=== PATIENT | female | born 1930 | race Hispanic/Latino ===

== ENCOUNTER 2017-06-29 22:15 | Inpatient (IN) | payer MEDICARE ==
[~2017-06-29] VITALS: Ht 152.4 cm; Wt 70.4 kg
[2017-06-29 22:42] LABS: HEMATOCRIT 29.9 % (36-48); MEAN CORPUSCULAR HEMOGLOBIN 33.3 pg (27.0-33.0); MEAN CORPUSCULAR HGB CONC 34.6 g/dL (32.0-36.0); MEAN CORPUSCULAR VOLUME 96.1 fL (79-99); PLATELET COUNT (AUTO) 164 K/uL (130-400); RED BLOOD CELL COUNT(AUTO) 3.12 MIL/uL (4.00-5.50); RED CELL DISTRIBUTION WIDTH 12.5 % (11.0-15.5); WHITE BLOOD COUNT (AUTO) 15.8 K/uL (4.8-10.8)
[2017-06-29 23:00] LABS: ALBUMIN 2.5 g/dL (3.5-5.0); BILIRUBIN,TOTAL 0.5 mg/dL (0.2-1.0); CREATININE 3.6 mg/dL (0.5-1.5); POTASSIUM 5.7 mmol/L (3.5-5.1); TOTAL PROTEIN, SERUM 6.4 g/dL (6.0-8.3)
[2017-06-29 23:04] LABS: BAND NEUTROPHILS % (MANUAL) 7 % (0-2); LYMPHOCYTES % (MANUAL) 5 % (22-44); MAN.DIFF COMMENT-IMPRESSION MANUAL DIFFERENTIAL; MONOCYTES % (MANUAL) 3 % (2-9); SEGMENTED NEUTROPHILS % 85 % (40-70)
[2017-06-29 23:05] LABS: PLATELET MORPHOLOGY COMMENT ADEQUATE
[2017-06-29 23:11] LABS: APPEARANCE,URINE Turbid (CLEAR); BILIRUBIN,URINE Negative (NEGATIVE); COLOR,URINE Yellow (YELLOW); GLUCOSE, URINE (UA) Negative (NEGATIVE); KETONES,URINE Negative (NEGATIVE); LEUKOCYTE ESTERASE ,URINE Large (NEGATIVE); NITRATE,URINE Negative (NEGATIVE); OCCULT BLOOD,URINE Small (NEGATIVE); PROTEIN,URINE 300 (NEGATIVE)
[2017-06-30 00:03] LABS: BACTERIA,URINE Many /HPF (None Seen); SQUAMOUS EPITHELIAL CELL,UR Many /LPF (0-2); WBC,URINE Full Field /HPF (0-1)
[2017-06-30 00:46] LABS: APPEARANCE,URINE Turbid (CLEAR); BILIRUBIN,URINE Negative (NEGATIVE); COLOR,URINE Yellow (YELLOW); GLUCOSE, URINE (UA) Negative (NEGATIVE); KETONES,URINE Negative (NEGATIVE); LEUKOCYTE ESTERASE ,URINE Large (NEGATIVE); NITRATE,URINE Negative (NEGATIVE); OCCULT BLOOD,URINE Negative (NEGATIVE); PROTEIN,URINE 300 (NEGATIVE)
[2017-06-30 00:54] LABS: BACTERIA,URINE Many /HPF (None Seen); RBC,URINE None Seen /HPF (0-1); SQUAMOUS EPITHELIAL CELL,UR None Seen /LPF (0-2); WBC,URINE 51-100 /HPF (0-1)
[2017-06-30] MEDS ORDERED: CEFTRIAXONE SODIUM 2 GM VIAL ONE (01:11)
[2017-06-30] MEDS ORDERED: SODIUM CHLORIDE 0.9% 1000ML 1,000 ML IV ONE ×2 (01:11→02:17)
[2017-06-30] MEDS ORDERED: ONDANSETRON HCL 4 MG/2 ML VIAL IVP PRN (03:00)
[2017-06-30] MEDS: CEFTRIAXONE SODIUM 1 GM IVP SCH (03:00)
[2017-06-30] MEDS ORDERED: SODIUM CHLORIDE 0.9% 1000ML 1,000 ML IV SCH (03:00)
[2017-06-30 04:22] VITALS: BP 158/66
[2017-06-30] MEDS ORDERED: ASPI-555 PO (05:33)
[2017-06-30] MEDS ORDERED: ESOM40CA54 PO (05:33)
[2017-06-30] MEDS ORDERED: CARV12.511 PO (05:33)
[2017-06-30] MEDS ORDERED: MELO7.5O PO (05:33)
[2017-06-30] MEDS ORDERED: HYDR-4153 PO (05:33)
[2017-06-30] MEDS ORDERED: FOLI1TAB85 PO (05:33)
[2017-06-30] MEDS ORDERED: ISOS30TA6 PO (05:33)
[2017-06-30] MEDS ORDERED: FERR325T22 PO (05:33)
[2017-06-30] MEDS ORDERED: BENZ-51 PO (05:33)
[2017-06-30] MEDS ORDERED: ATOR10TA69 PO (05:33)
[2017-06-30] MEDS ORDERED: CHOL100040 PO (05:33)
[2017-06-30] MEDS ORDERED: CYAN10009 PO (05:33)
[2017-06-30] MEDS ORDERED: TRAM50TA4 PO (05:33)
[2017-06-30] MEDS: INSULIN HUMULIN R 100 UNIT/ML 3ML SQ SCH ×4 (06:22→21:47)
[2017-06-30 08:00] VITALS: BP 165/68
[2017-06-30] MEDS: FAMOTIDINE/PF 20 MG/2 ML VIAL IV SCH (09:35)
[2017-06-30] MEDS: ENOXAPARIN SODIUM 30 MG/0.3 ML SQ SCH (09:37)
[2017-06-30] MEDS: ACETAMINOPHEN 325 MG TAB PO PRN (11:29)
[2017-06-30 12:14] VITALS: BP 106/78
[2017-06-30 14:06] LABS: HEMATOCRIT 27.4 % (36-48); MEAN CORPUSCULAR HEMOGLOBIN 32.5 pg (27.0-33.0); MEAN CORPUSCULAR HGB CONC 34.2 g/dL (32.0-36.0); MEAN CORPUSCULAR VOLUME 94.9 fL (79-99); PLATELET COUNT (AUTO) 162 K/uL (130-400); RED BLOOD CELL COUNT(AUTO) 2.88 MIL/uL (4.00-5.50); RED CELL DISTRIBUTION WIDTH 12.8 % (11.0-15.5); WHITE BLOOD COUNT (AUTO) 11.8 K/uL (4.8-10.8)
[2017-06-30 14:19] LABS: CREATININE 3.5 mg/dL (0.5-1.5); POTASSIUM 5.3 mmol/L (3.5-5.1)
[2017-06-30 16:00] VITALS: BP 166/84
[2017-06-30] MEDS ORDERED: GUAIFENESIN SUGAR-FREE 100 MG/5 ML UDCUP PO PRN (16:15)
[2017-06-30] MEDS ORDERED: SODIUM POLYSTYRENE SULFONATE 15 GM/60 ML ML PO SCH (16:15)
[2017-06-30] MEDS ORDERED: LEVOFLOXACIN 500 MG/D5W 100 ML 100 ML IV SCH (16:30)
[2017-06-30 20:00] VITALS: BP 172/70
[2017-07-01] VITALS: BP 158/76
[2017-07-01] MEDS: CEFTRIAXONE SODIUM 1 GM IVP SCH (03:03)
[2017-07-01 04:00] VITALS: BP 176/72
[2017-07-01 04:47] LABS: HEMATOCRIT 28.2 % (36-48); MEAN CORPUSCULAR HEMOGLOBIN 33.8 pg (27.0-33.0); MEAN CORPUSCULAR HGB CONC 35.8 g/dL (32.0-36.0); MEAN CORPUSCULAR VOLUME 94.5 fL (79-99); PLATELET COUNT (AUTO) 168 K/uL (130-400); RED BLOOD CELL COUNT(AUTO) 2.98 MIL/uL (4.00-5.50); RED CELL DISTRIBUTION WIDTH 12.3 % (11.0-15.5); WHITE BLOOD COUNT (AUTO) 13.3 K/uL (4.8-10.8)
[2017-07-01 05:03] LABS: CREATININE 3.3 mg/dL (0.5-1.5); POTASSIUM 4.8 mmol/L (3.5-5.1)
[2017-07-01] MEDS: ACETAMINOPHEN 325 MG TAB PO PRN ×3 (05:20→21:34)
[2017-07-01] MEDS: INSULIN HUMULIN R 100 UNIT/ML 3ML SQ SCH ×4 (07:29→21:55)
[2017-07-01 08:00] VITALS: BP 158/90
[2017-07-01] MEDS: FAMOTIDINE/PF 20 MG/2 ML VIAL IV SCH ×3 (09:00→21:24)
[2017-07-01] MEDS: ENOXAPARIN SODIUM 30 MG/0.3 ML SQ SCH (09:47)
[2017-07-01 11:00] VITALS: BP 167/84
[2017-07-01] MEDS ORDERED: TRAMADOL HCL 50 MG TABLET PO PRN (13:15)
[2017-07-01] MEDS ORDERED: BENZONATATE 100 MG CAPSULE PO PRN (13:15)
[2017-07-01 16:00] VITALS: BP 161/81
[2017-07-01 20:15] VITALS: BP 171/74
[2017-07-01] MEDS: CARVEDILOL 12.5 MG TABLET PO SCH (21:32)
[2017-07-02] VITALS (16 sets, daily range): BP systolic 114–181; BP diastolic 67–114
[2017-07-02] MEDS: CEFTRIAXONE SODIUM 1 GM IVP SCH (03:05)
[2017-07-02 05:01] LABS: HEMATOCRIT 28.8 % (36-48); MEAN CORPUSCULAR HEMOGLOBIN 32.6 pg (27.0-33.0); MEAN CORPUSCULAR HGB CONC 34.3 g/dL (32.0-36.0); MEAN CORPUSCULAR VOLUME 95.1 fL (79-99); PLATELET COUNT (AUTO) 210 K/uL (130-400); RED BLOOD CELL COUNT(AUTO) 3.03 MIL/uL (4.00-5.50); RED CELL DISTRIBUTION WIDTH 12.6 % (11.0-15.5); WHITE BLOOD COUNT (AUTO) 11.2 K/uL (4.8-10.8)
[2017-07-02 05:26] LABS: POTASSIUM 4.5 mmol/L (3.5-5.1)
[2017-07-02] MEDS: INSULIN HUMULIN R 100 UNIT/ML 3ML SQ SCH ×3 (06:37→22:40)
[2017-07-02] MEDS: CHOLECALCIFEROL PO SCH (09:00)
[2017-07-02] MEDS ORDERED: ATORVASTATIN CALCIUM 10 MG TABLET PO SCH (09:00)
[2017-07-02] MEDS: FERROUS SULFATE 325 MG TABLET.DR PO SCH (09:26)
[2017-07-02] MEDS: CYANOCOBALAMIN (VITAMIN B-12) 1,000 MCG TABLET PO SCH (09:26)
[2017-07-02] MEDS: ASPIRIN 81 MG EC TAB PO SCH (09:26)
[2017-07-02] MEDS: FOLIC ACID/VITAMIN B COMP W-C 1 MG CAPSULE PO SCH (09:26)
[2017-07-02] MEDS: CARVEDILOL 12.5 MG TABLET PO SCH ×2 (09:27→20:36)
[2017-07-02] MEDS: ISOSORBIDE MONO 30MG TAB SR PO SCH (09:27)
[2017-07-02] MEDS: PANTOPRAZOLE SODIUM 40 MG TABLET.DR PO SCH (09:27)
[2017-07-02] MEDS: ENOXAPARIN SODIUM 30 MG/0.3 ML SQ SCH (09:30)
[2017-07-02] MEDS: DIPHENHYDRAMINE HCL 25 MG CAPSULE PO SCH (20:35)
[2017-07-02] MEDS: ACETAMINOPHEN 325 MG TAB PO PRN (20:39)
[2017-07-03 03:00] VITALS: BP 131/71
[2017-07-03] MEDS: CEFTRIAXONE SODIUM 1 GM IVP SCH (03:07)
[2017-07-03 04:39] LABS: HEMATOCRIT 29.3 % (36-48); MEAN CORPUSCULAR HEMOGLOBIN 33.2 pg (27.0-33.0); MEAN CORPUSCULAR HGB CONC 34.8 g/dL (32.0-36.0); MEAN CORPUSCULAR VOLUME 95.3 fL (79-99); PLATELET COUNT (AUTO) 262 K/uL (130-400); RED BLOOD CELL COUNT(AUTO) 3.07 MIL/uL (4.00-5.50); RED CELL DISTRIBUTION WIDTH 12.7 % (11.0-15.5); WHITE BLOOD COUNT (AUTO) 12.3 K/uL (4.8-10.8)
[2017-07-03 04:46] LABS: POTASSIUM 4.7 mmol/L (3.5-5.1)
[2017-07-03] MEDS: INSULIN HUMULIN R 100 UNIT/ML 3ML SQ SCH ×4 (06:26→21:00)
[2017-07-03] MEDS: ACETAMINOPHEN 325 MG TAB PO PRN (06:54)
[2017-07-03 08:00] VITALS: BP 173/85
[2017-07-03] MEDS: CHOLECALCIFEROL PO SCH (09:00)
[2017-07-03] MEDS: ISOSORBIDE MONO 30MG TAB SR PO SCH (09:22)
[2017-07-03] MEDS: CYANOCOBALAMIN (VITAMIN B-12) 1,000 MCG TABLET PO SCH (09:22)
[2017-07-03] MEDS: CARVEDILOL 12.5 MG TABLET PO SCH ×2 (09:22→20:50)
[2017-07-03] MEDS: FERROUS SULFATE 325 MG TABLET.DR PO SCH (09:22)
[2017-07-03] MEDS: ASPIRIN 81 MG EC TAB PO SCH (09:22)
[2017-07-03] MEDS: FOLIC ACID/VITAMIN B COMP W-C 1 MG CAPSULE PO SCH (09:22)
[2017-07-03] MEDS: PANTOPRAZOLE SODIUM 40 MG TABLET.DR PO SCH (09:22)
[2017-07-03] MEDS: ENOXAPARIN SODIUM 30 MG/0.3 ML SQ SCH (09:24)
[2017-07-03] MEDS ORDERED: KETOROLAC TROMETHAMINE 30MG/ML IV SCH (11:45)
[2017-07-03] MEDS ORDERED: MAG HYDROX/AL HYDROX/SIMETH ES 30 ML SUSP UDCUP PO SCH (11:45)
[2017-07-03 12:00] VITALS: BP 182/91
[2017-07-03 16:00] VITALS: BP 159/71
[2017-07-03 19:25] VITALS: BP 147/72
[2017-07-03] MEDS: DIPHENHYDRAMINE HCL 25 MG CAPSULE PO SCH (20:50)
[2017-07-03] MEDS: ATORVASTATIN CALCIUM 10 MG TABLET PO SCH (20:50)
[2017-07-04] VITALS (8 sets, daily range): BP systolic 147–180; BP diastolic 64–92
[2017-07-04] MEDS: CEFTRIAXONE SODIUM 1 GM IVP SCH (03:24)
[2017-07-04] MEDS: INSULIN HUMULIN R 100 UNIT/ML 3ML SQ SCH ×4 (06:39→21:48)
[2017-07-04] MEDS: PANTOPRAZOLE SODIUM 40 MG TABLET.DR PO SCH ×2 (07:30→09:25)
[2017-07-04] MEDS: CHOLECALCIFEROL PO SCH (09:00)
[2017-07-04] MEDS: ISOSORBIDE MONO 30MG TAB SR PO SCH (09:25)
[2017-07-04] MEDS: CYANOCOBALAMIN (VITAMIN B-12) 1,000 MCG TABLET PO SCH (09:25)
[2017-07-04] MEDS: FUROSEMIDE 10 MG/ML 4ML VIAL IVP SCH ×2 (09:25→21:47)
[2017-07-04] MEDS: CARVEDILOL 12.5 MG TABLET PO SCH ×2 (09:25→21:47)
[2017-07-04] MEDS: FOLIC ACID/VITAMIN B COMP W-C 1 MG CAPSULE PO SCH (09:25)
[2017-07-04] MEDS: FERROUS SULFATE 325 MG TABLET.DR PO SCH (09:26)
[2017-07-04] MEDS: ENOXAPARIN SODIUM 30 MG/0.3 ML SQ SCH (09:26)
[2017-07-04] MEDS: ASPIRIN 81 MG EC TAB PO SCH (09:26)
[2017-07-04] MEDS: CLONIDINE HCL 0.1 MG TABLET ONE ×2 (18:27→18:32)
[2017-07-04] MEDS ORDERED: CLONIDINE HCL 0.2 MG TABLET PO ONE (19:00)
[2017-07-04] MEDS: ATORVASTATIN CALCIUM 10 MG TABLET PO SCH (21:46)
[2017-07-04] MEDS: DIPHENHYDRAMINE HCL 25 MG CAPSULE PO SCH (21:46)
[2017-07-05] MEDS: CEFTRIAXONE SODIUM 1 GM IVP SCH (02:13)
[2017-07-05 04:00] VITALS: BP 159/87
[2017-07-05 05:20] LABS: BASOPHILS % (AUTO) 0.5 % (0.0-5.0); EOSINOPHILS % (AUTO) 0.9 % (0.0-8.0); HEMATOCRIT 27.3 % (36-48); LYMPHOCYTES % (AUTO) 6.5 % (21.0-51.0); MEAN CORPUSCULAR HGB CONC 35.9 g/dL (32.0-36.0); MEAN CORPUSCULAR VOLUME 94.5 fL (79-99); MONOCYTES % (AUTO) 6.1 % (3.0-13.0); NUCLEATED RED BLOOD CELLS 0.2 % (0.0-0.19); PLATELET COUNT (AUTO) 339 K/uL (130-400); RED BLOOD CELL COUNT(AUTO) 2.88 MIL/uL (4.00-5.50); RED CELL DISTRIBUTION WIDTH 12.8 % (11.0-15.5); WHITE BLOOD COUNT (AUTO) 13.1 K/uL (4.8-10.8)
[2017-07-05 05:33] LABS: CREATININE 2.9 mg/dL (0.5-1.5); POTASSIUM 4.4 mmol/L (3.5-5.1)
[2017-07-05] MEDS: INSULIN HUMULIN R 100 UNIT/ML 3ML SQ SCH ×4 (06:11→21:27)
[2017-07-05] MEDS: PANTOPRAZOLE SODIUM 40 MG TABLET.DR PO SCH ×2 (06:40→09:24)
[2017-07-05 08:00] VITALS: BP 172/78
[2017-07-05] MEDS: CHOLECALCIFEROL PO SCH (09:00)
[2017-07-05] MEDS: FOLIC ACID/VITAMIN B COMP W-C 1 MG CAPSULE PO SCH (09:24)
[2017-07-05] MEDS: ISOSORBIDE MONO 30MG TAB SR PO SCH (09:24)
[2017-07-05] MEDS: FERROUS SULFATE 325 MG TABLET.DR PO SCH (09:24)
[2017-07-05] MEDS: CYANOCOBALAMIN (VITAMIN B-12) 1,000 MCG TABLET PO SCH (09:24)
[2017-07-05] MEDS: ASPIRIN 81 MG EC TAB PO SCH (09:24)
[2017-07-05] MEDS: CARVEDILOL 12.5 MG TABLET PO SCH ×2 (09:25→20:48)
[2017-07-05] MEDS: FUROSEMIDE 10 MG/ML 4ML VIAL IVP SCH ×2 (09:25→20:49)
[2017-07-05] MEDS: ENOXAPARIN SODIUM 30 MG/0.3 ML SQ SCH (09:26)
[2017-07-05 11:37] VITALS: BP 152/66
[2017-07-05] MEDS ORDERED: COMPOUND IV MISC 1 EACH IVSOLN MISC PRN (13:15)
[2017-07-05] MEDS: EPOETIN ALFA 10,000 UNIT/ML VIAL SQ SCH (13:56)
[2017-07-05 16:00] VITALS: BP 160/70
[2017-07-05 19:00] VITALS: BP 165/75
[2017-07-05] MEDS: DIPHENHYDRAMINE HCL 25 MG CAPSULE PO SCH (20:48)
[2017-07-05] MEDS: ATORVASTATIN CALCIUM 10 MG TABLET PO SCH (20:48)
[2017-07-06] VITALS (8 sets, daily range): BP systolic 154–177; BP diastolic 64–85
[2017-07-06] MEDS: CARVEDILOL 12.5 MG TABLET PO SCH ×2 (06:29→20:35)
[2017-07-06] MEDS: ACETAMINOPHEN 325 MG TAB PO PRN ×2 (06:29→23:47)
[2017-07-06] MEDS: INSULIN HUMULIN R 100 UNIT/ML 3ML SQ SCH ×4 (06:41→21:05)
[2017-07-06] MEDS: PANTOPRAZOLE SODIUM 40 MG TABLET.DR PO SCH ×2 (06:47→10:33)
[2017-07-06] MEDS: CHOLECALCIFEROL PO SCH (09:00)
[2017-07-06] MEDS: FUROSEMIDE 10 MG/ML 4ML VIAL IVP SCH ×2 (10:31→20:34)
[2017-07-06] MEDS: CYANOCOBALAMIN (VITAMIN B-12) 1,000 MCG TABLET PO SCH (10:32)
[2017-07-06] MEDS: IRON SUCROSE COMPLEX 100 MG in SODIUM CHLORIDE 0.9% 50 ML IV SCH (10:32)
[2017-07-06] MEDS: ENOXAPARIN SODIUM 30 MG/0.3 ML SQ SCH (10:32)
[2017-07-06] MEDS: FOLIC ACID/VITAMIN B COMP W-C 1 MG CAPSULE PO SCH (10:32)
[2017-07-06] MEDS: LEVOFLOXACIN 250 MG/D5W 50ML 50 ML IV SCH (10:32)
[2017-07-06] MEDS: FERROUS SULFATE 325 MG TABLET.DR PO SCH (10:33)
[2017-07-06] MEDS: ASPIRIN 81 MG EC TAB PO SCH (10:33)
[2017-07-06] MEDS: ISOSORBIDE MONO 30MG TAB SR PO SCH (10:33)
[2017-07-06] MEDS: EPOETIN ALFA 10,000 UNIT/ML VIAL SQ SCH (12:56)
[2017-07-06] MEDS: ATORVASTATIN CALCIUM 10 MG TABLET PO SCH (20:34)
[2017-07-06] MEDS: DIPHENHYDRAMINE HCL 25 MG CAPSULE PO SCH (20:35)
[2017-07-07 04:00] VITALS: BP 174/84
[2017-07-07] MEDS: INSULIN HUMULIN R 100 UNIT/ML 3ML SQ SCH ×4 (06:14→21:32)
[2017-07-07 06:32] LABS: HEMATOCRIT 28.1 % (36-48); MEAN CORPUSCULAR HEMOGLOBIN 34.1 pg (27.0-33.0); MEAN CORPUSCULAR HGB CONC 35.8 g/dL (32.0-36.0); MEAN CORPUSCULAR VOLUME 95.2 fL (79-99); NUCLEATED RED BLOOD CELLS 0.5 % (0.0-0.19); PLATELET COUNT (AUTO) 376 K/uL (130-400); RED BLOOD CELL COUNT(AUTO) 2.95 MIL/uL (4.00-5.50); RED CELL DISTRIBUTION WIDTH 13.3 % (11.0-15.5); WHITE BLOOD COUNT (AUTO) 13.4 K/uL (4.8-10.8)
[2017-07-07] MEDS: CARVEDILOL 12.5 MG TABLET PO SCH ×2 (06:43→21:25)
[2017-07-07] MEDS: PANTOPRAZOLE SODIUM 40 MG TABLET.DR PO SCH ×2 (06:43→08:59)
[2017-07-07 06:45] LABS: CREATININE 2.6 mg/dL (0.5-1.5); PHOSPHORUS 3.3 mg/dL (2.5-4.9); POTASSIUM 4.1 mmol/L (3.5-5.1)
[2017-07-07 07:30] VITALS: BP 166/78
[2017-07-07 07:45] LABS: EOSINOPHILS % (MANUAL) 1 % (1-6); LYMPHOCYTES % (MANUAL) 7 % (22-44); MAN.DIFF COMMENT-IMPRESSION MANUAL DIFFERENTIAL; METAMYELOCYTES % 2 % (0-0); MONOCYTES % (MANUAL) 5 % (2-9); SEGMENTED NEUTROPHILS % 85 % (40-70)
[2017-07-07 07:46] LABS: PLATELET MORPHOLOGY COMMENT ADEQUATE
[2017-07-07] MEDS: LEVOFLOXACIN 250 MG/D5W 50ML 50 ML IV SCH (08:58)
[2017-07-07] MEDS: FERROUS SULFATE 325 MG TABLET.DR PO SCH (08:58)
[2017-07-07] MEDS: ASPIRIN 81 MG EC TAB PO SCH (08:58)
[2017-07-07] MEDS: ISOSORBIDE MONO 30MG TAB SR PO SCH (08:58)
[2017-07-07] MEDS: FUROSEMIDE 10 MG/ML 4ML VIAL IVP SCH ×2 (08:58→21:22)
[2017-07-07] MEDS: FOLIC ACID/VITAMIN B COMP W-C 1 MG CAPSULE PO SCH (08:58)
[2017-07-07] MEDS: CYANOCOBALAMIN (VITAMIN B-12) 1,000 MCG TABLET PO SCH (08:59)
[2017-07-07] MEDS: CHOLECALCIFEROL PO SCH (08:59)
[2017-07-07] MEDS: ENOXAPARIN SODIUM 30 MG/0.3 ML SQ SCH (09:00)
[2017-07-07] MEDS: IRON SUCROSE COMPLEX 100 MG in SODIUM CHLORIDE 0.9% 50 ML IV SCH (09:11)
[2017-07-07 11:51] VITALS: BP 140/72
[2017-07-07] MEDS: EPOETIN ALFA 10,000 UNIT/ML VIAL SQ SCH (12:11)
[2017-07-07 16:00] VITALS: BP 154/77
[2017-07-07 19:00] VITALS: BP 167/85
[2017-07-07] MEDS: DIPHENHYDRAMINE HCL 25 MG CAPSULE PO SCH (21:24)
[2017-07-07] MEDS: ATORVASTATIN CALCIUM 10 MG TABLET PO SCH (21:24)
[2017-07-07 23:55] VITALS: BP 154/59
[2017-07-08] MEDS: ACETAMINOPHEN 325 MG TAB PO PRN (02:17)
[2017-07-08 04:00] VITALS: BP 175/74
[2017-07-08] MEDS: INSULIN HUMULIN R 100 UNIT/ML 3ML SQ SCH ×3 (05:37→17:08)
[2017-07-08] MEDS: PANTOPRAZOLE SODIUM 40 MG TABLET.DR PO SCH ×2 (05:56→08:36)
[2017-07-08 08:00] VITALS: BP 164/72
[2017-07-08] MEDS: LEVOFLOXACIN 250 MG/D5W 50ML 50 ML IV SCH (08:34)
[2017-07-08] MEDS: IRON SUCROSE COMPLEX 100 MG in SODIUM CHLORIDE 0.9% 50 ML IV SCH (08:34)
[2017-07-08] MEDS: CYANOCOBALAMIN (VITAMIN B-12) 1,000 MCG TABLET PO SCH (08:35)
[2017-07-08] MEDS: FOLIC ACID/VITAMIN B COMP W-C 1 MG CAPSULE PO SCH (08:35)
[2017-07-08] MEDS: ISOSORBIDE MONO 30MG TAB SR PO SCH (08:35)
[2017-07-08] MEDS: FERROUS SULFATE 325 MG TABLET.DR PO SCH (08:35)
[2017-07-08] MEDS: ASPIRIN 81 MG EC TAB PO SCH (08:35)
[2017-07-08] MEDS: FUROSEMIDE 10 MG/ML 4ML VIAL IVP SCH (08:35)
[2017-07-08] MEDS: CHOLECALCIFEROL PO SCH (08:36)
[2017-07-08] MEDS: CARVEDILOL 12.5 MG TABLET PO SCH (08:36)
[2017-07-08] MEDS: ENOXAPARIN SODIUM 30 MG/0.3 ML SQ SCH (08:37)
[2017-07-08] MEDS ORDERED: FURO40TA7 PO (11:52)
[2017-07-08] MEDS ORDERED: LEVO250S3 PO (11:52)
[2017-07-08 12:00] VITALS: BP 153/72
[2017-07-08] MEDS: EPOETIN ALFA 10,000 UNIT/ML VIAL SQ SCH (12:45)
[2017-07-08 16:00] VITALS: BP 167/71
== END 2017-07-08 17:15 | disposition home health service (06) | DRG 872 ==
LOC: EDH 22:15 → EDHIP 06-30 02:07 → 3CH 06-30 02:44
PROVIDERS: ADMIT Internal Medicine Nephrology; ATTEND Internal Medicine Nephrology
DX: A41.9 Sepsis, unspecified organism (principal); E11.51 Type 2 diabetes mellitus with diabetic peripheral angiopathy without gangrene; E11.22 Type 2 diabetes mellitus with diabetic chronic kidney disease; N17.9 Acute kidney failure, unspecified; N18.4 Chronic kidney disease, stage 4 (severe); E87.1 Hypo-osmolality and hyponatremia; E87.5 Hyperkalemia; D64.9 Anemia, unspecified; Z95.1 Presence of aortocoronary bypass graft; I25.10 Atherosclerotic heart disease of native coronary artery without angina pectoris; I12.9 Hypertensive chronic kidney disease with stage 1 through stage 4 chronic kidney disease, or unspecified chronic kidney disease; E87.70 Fluid overload, unspecified; N30.80 Other cystitis without hematuria; E78.5 Hyperlipidemia, unspecified; Z90.49 Acquired absence of other specified parts of digestive tract; Z95.5 Presence of coronary angioplasty implant and graft; Z28.21 Immunization not carried out because of patient refusal
CPT/HCPCS: 36415; 70450; 71045; 74176; 80048; 80053; 81001; 82150; 82948; 83605; 83690; 84100; 84484; 85025; 85027; 87040; 87088; 87186; 93005; 97039; A4218; J0696; J0885; J1650; J1756; J1815; J1940; J1956; J2405; J3490; J7030; Q0163